=== PATIENT | male | born 1985 | race Two or more races ===

== ENCOUNTER 2017-12-14 15:24 | Emergency (ER) | payer SELFPAY ==
[~2017-12-14] VITALS: Ht 182.9 cm; Wt 86.2 kg
--- NOTE | 2017-12-14 16:30 | NUR ---
Pt ambulatory with a steady gait.
--- NOTE | 2017-12-14 17:35 | NUR ---
Patient discharged to home in stable condition. Written and verbal after care instructions given. Patient verbalizes understanding of instruction.
[2017-12-14 17:36] VITALS: BP 128/77
== END 2017-12-14 17:37 | disposition home or self-care (01) ==
LOC: ER 15:28
DX: F10.129 Alcohol abuse with intoxication, unspecified (principal)
CPT/HCPCS: A4606; Z7610